=== PATIENT | female | born 1980 | race Caucasian/White ===

== ENCOUNTER 2020-06-23 06:40 | Day surgery (SDC) | payer BC ==
[2020-06-23] MEDS ORDERED: Propofol 200 MG/20 ML SDV ONE (06:54)
[2020-06-23] MEDS ORDERED: Midazolam 1 MG/ML 2 ML SDV ONE (06:54)
[2020-06-23] MEDS ORDERED: fentaNYL 100 MCG/2 ML SDV ONE ×2 (06:54→13:26)
[2020-06-23] MEDS ORDERED: Lidocaine 2% 5 ML SDV ONE (06:57)
[2020-06-23] MEDS ORDERED: Glycopyrrolate 0.2 MG/ML SDV ONE (06:57)
[2020-06-23] MEDS ORDERED: Ketorolac 30 MG/ML SDV ONE (06:57)
[2020-06-23] MEDS ORDERED: Ondansetron 4 MG/2 ML SDV ONE (06:57)
[2020-06-23] MEDS ORDERED: fentaNYL 100 MCG/2 ML SDV IVPUSH PRN (07:12)
[2020-06-23] MEDS ORDERED: Acetaminophen 1,000 MG in Premix Bag 1 BAG IV PRN (07:12)
[2020-06-23] MEDS ORDERED: Lidocaine 1% with EPINEPHrine 1:100,000 20 ML MDV ONE (07:18)
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
[2020-06-23 07:53] LABS: BLOOD UREA NITROGEN,BUN 8 mg/dL (7.0-18.0); CARBON DIOXIDE,CO2 25.3 mmol/L (21.0-32.0); CHLORIDE,CL 107 mmol/L (98-107); GLUCOSE RANDOM 95 mg/dL (74-106); POTASSIUM,K 4.2 mmol/L (3.5-5.1); SODIUM,NA 141 mmol/L (136-145)
[2020-06-23] MEDS ORDERED: Acetaminophen/HYDROcodone 325-5 MG Tab PO PRN (08:46)
--- NOTE | 2020-06-23 08:53 | PCM.OPNOTE ---
- General Post-Op/Procedure Note Date of Surgery/Procedure: 06/23/20 Operative Procedure(s): Loop electrosurgical excision procedure Findings: Normal sized anteverted uterus Cervic with nabothian cyst at 3-6oclock position Pre Op Diagnosis: Cervical intraepithelial neoplasia 2 Post-Op Diagnosis: same Anesthesia Technique: MAC Primary Surgeon: Judith Suarez Pathology: Leep portion of cervix tagged at 120clock Fluid Replacement, Intraop: 500 EBL in mLs: 5 Complications: None Condition: Good Free Text/Narrative:: Intake & Output 06/22/20 06/23/20 06/23/20 22:59 06:59 14:59 Intake Total 700 Balance 700
--- NOTE | 2020-06-23 09:03 | PCM.POSTAN ---
POST ANESTHESIA ASSESSMENT - MENTAL STATUS Mental Status: Alert, Oriented - VITAL SIGNS Vital Signs: Last Vital Signs Temp 36.7 C 06/23/20 08:45 Pulse 73 06/23/20 08:45 Resp 14 06/23/20 08:45 BP 125/78 06/23/20 08:45 Pulse Ox 98 06/23/20 08:45 - RESPIRATORY Respiratory Status: Respiratory Rate WNL, Airway Patent, O2 Saturation Stable - CARDIOVASCULAR CV Status: Pulse Rate WNL, Blood Pressure Stable - GASTROINTESTINAL GI Status: No Symptoms - PAIN Pain Score: 0 - POST OP HYDRATION Hydration Status: Adequate & Stable - OBSERVATIONS Free Text/Narrative:: No anesthesia problems
--- NOTE | 2020-06-23 09:09 | PCM48HPAN ---
Post Anesthesia Note - EVALUATION WITHIN 48HRS OF ANESTHETIC Vital Signs in Normal Range: Yes Patient Participated in Evaluation: Yes Respiratory Function Stable: Yes Airway Patent: Yes Cardiovascular Function Stable: Yes Hydration Status Stable: Yes Pain Control Satisfactory: Yes Nausea and Vomiting Control Satisfactory: Yes Mental Status Recovered: Yes Vital Signs: Last Vital Signs Temp 36.7 C 06/23/20 08:45 Pulse 73 06/23/20 09:00 Resp 72 H 06/23/20 09:00 BP 124/70 06/23/20 09:00 Pulse Ox 98 06/23/20 09:00 - COMMENTS/OBSERVATIONS Free Text/Narrative:: No anesthesia problems
--- NOTE | 2020-06-24 11:22 | OR ---
SURGEON: FAUSTO BANKSUMICHAEL DATE OF PROCEDURE: 06/23/2020 PREOPERATIVE DIAGNOSIS: A 40-year-old with cervical intraepithelial neoplasia two. POSTOPERATIVE DIAGNOSIS: A 40-year-old with cervical intraepithelial neoplasia two. PROCEDURE: Loop electrosurgical excision procedure of the transformation zone. ANESTHESIA: MAC. FINDINGS: Normal-sized anteverted uterus. Nabothian cyst noted around 3 to 6 o'clock position. BLOOD LOSS: About 5 mL. IV FLUID: 500. DESCRIPTION OF PROCEDURE: The patient was taken to the operating room and placed in the supine position with the Blade stirrups. This was done after MAC anesthesia was given. She was prepared and draped in the usual fashion. An insulated bivalve speculum was inserted into the vagina to expose the cervix. The cervix was prepped with the acetic acid vinegar. It was then soaked with acetic acid. The Nabothian cyst was noted. The cervix was then infiltrated with 1% lidocaine diluted with epi, about 10 mL was injected at 3, 6, 9, and 12 o'clock position. A 25 x 15 loop was then obtained and a cone biopsy was carried out with a blended current of 40 coag and 60 cut. After this was done in a [id number] fashion there was no bleeding noted. Then after the excision of the cone specimen, the endocervical curettage was taken with a Kevorkian curette, then the base which was not bleeding was coagulated with the ball electrode. The patient tolerated the procedure well. All instrument and pad counts were correct x2, and the patient will go home after recovery today. ACOSTA / MIO /[id number]
== END 2020-06-23 09:27 | disposition home or self-care (01) ==
LOC: MW.SDS 06:40
PROVIDERS: ATTEND Obstetrics & Gynecology
DX: N87.1 Moderate cervical dysplasia (principal); G43.909 Migraine, unspecified, not intractable, without status migrainosus; Z90.49 Acquired absence of other specified parts of digestive tract; Z87.891 Personal history of nicotine dependence
CPT/HCPCS: 36415; 57522; 80048; 84703; 88305; 88307; J1885; J2001; J2250; J2405; J2704; J3010; J3490; 00940

== ENCOUNTER 2023-12-12 16:31 | Emergency (ER) | payer SELFPAY ==
[2023-12-12 17:08] LABS: BASOPHILS ABSOLUTE AUTO 0.07 K/uL (0.00-0.20); EOSINOPHILS ABSOLUTE AUTO 0.15 K/uL (0.00-0.45); EOSINOPHILS PERCENT AUTO 2.2 % (0.0-6.0); HEMATOCRIT 36.9 % (37.0-47.0); HEMOGLOBIN 13.6 g/dL (12.0-16.0); IMMATURE GRAN ABSOLUTE AUTO 0.01 K/uL (0.00-0.05); IMMATURE GRAN PERCENT AUTO 0.1 % (0.0-0.4); LYMPHOCYTES ABSOLUTE AUTO 1.99 K/uL (1.00-4.80); LYMPHOCYTES PERCENT AUTO 28.6 % (24.0-44.0); MEAN CORPUSCULAR HGB CONC 36.9 g/dL (32.0-36.0); MEAN CORPUSCULAR VOLUME 92.3 fL (83.0-99.0); MEAN PLATELET VOLUME 9.9 fL (9.4-12.3); MONOCYTES ABSOLUTE AUTO 0.78 K/uL (0.00-0.80); MONOCYTES PERCENT AUTO 11.2 % (0.0-8.0); NEUTROPHILS ABSOLUTE AUTO 3.96 K/uL (1.80-7.70); NEUTROPHILS PERCENT AUTO 56.9 % (41.0-71.0); PLATELET COUNT,PLT 287 K/uL (150-400); WHITE BLOOD CELL COUNT,WBC 6.96 K/uL (3.9-11.3)
[2023-12-12 17:34] LABS: A/G RATIO 1.1 (0.9-1.6); ALANINE AMINOTRANSFERASE,ALT 23 IU/L (14-63); ALBUMIN 4.2 g/dL (3.4-5.0); ALKALINE PHOSPHATASE 50 U/L (46-116); ASPARTATE AMNIOTRANSFERASE,AST 18 IU/L (15-37); BILIRUBIN TOTAL 0.7 mg/dL (0.2-1.0); BLOOD UREA NITROGEN,BUN 18 mg/dL (7.0-18.0); CALCIUM 8.9 mg/dL (8.5-10.1); CARBON DIOXIDE,CO2 23.9 mmol/L (21.0-32.0); CHLORIDE,CL 101 mmol/L (98-107); CREATININE 0.7 mg/dL (0.6-1.0); EST CRCL DRUG DOSING (CG) 111.24 mL/min; GLUCOSE RANDOM 103 mg/dL (74-106); LIPASE 33 U/L (16-77); POTASSIUM,K 3.4 mmol/L (3.5-5.1); PROTEIN TOTAL,TP 8.1 g/dL (6.4-8.2); SODIUM,NA 138 mmol/L (136-145)
[2023-12-12] MEDS: Sodium Chloride 0.9% 1,000 ML IV STA (17:35)
[2023-12-12 17:39] LABS: TSH ULTRASENSITIVE 3.41 uIU/mL (0.36-3.74)
[2023-12-12 17:45] LABS: ESTIMATED GFR 110 mL/min (>60)
== END 2023-12-12 19:29 | disposition home or self-care (01) ==
LOC: MW.ED 16:31
DX: R07.89 Other chest pain (principal); Z75.8 Other problems related to medical facilities and other health care
CPT/HCPCS: 36415; 71046; 80053; 83690; 84443; 84484; 84703; 85025; 93005; 96360; 99285; J7030